=== PATIENT | female | born 1930 | race African-American/Black ===

== ENCOUNTER 2017-11-23 12:37 | Observation (INO) | payer MEDICARE, OTHER ==
[~2017-11-23] VITALS: Ht 162.6 cm; Wt 53.5 kg
[~2017-11-23 12:37] MED LIST: AMLO5TAB4 PO; ASPI-1159 PO; ATOR40TA70 PO; CLOP75TA33 PO; DEXT15DR5 EACHEYE; FOLBEE PLUS PO; MEMA1CAP PO; OFLO5DRO3 BOTHEYE; PRED5DRO7 EACHEYE
[2017-11-23 13:48] LABS: BASOPHILS % 0.5 % (0.0-2.0); HEMATOCRIT. 35.4 % (36.0-48.0); HEMOGLOBIN. 11.9 g/dL (12.0-16.0); LYMPHOCYTES % 21.7 % (20.0-50.0); MEAN CORPUSCULAR HEMOGLOBIN 30.6 pg (28.0-32.0); MEAN CORPUSCULAR VOLUME 90.8 fL (81.0-99.0); MEAN PLATELET VOLUME 8.1 fl (7.4-10.4); MONOCYTES % 10.3 % (2.0-8.0); NEUTROPHILS % 65.5 % (40.0-76.0); PLATELET 190 x1000/uL (130-400); RED CELL DISTRIBUTION WIDTH 14.5 % (11.6-14.6)
[2017-11-23 13:53] LABS: CHLORIDE 107 mEq/L (98-107)
[2017-11-23 13:56] LABS: INR 1.1; PARTIAL THROMBOPLASTIN TIME 26.3 sec (23.4-31.0)
[2017-11-23] MEDS ORDERED: SODIUM CHLORIDE 0.9% 1,000 ML IV ONE (15:14)
[2017-11-23 15:23] LABS: CLARITY URINE CLEAR (CLEAR); COLOR URINE YELLOW (YELLOW); KETONES URINE NEGATIVE (NEGATIVE); LEUKOCYTE ESTERASE URINE TRACE (NEGATIVE); NITRITE URINE NEGATIVE (NEGATIVE); OCCULT BLOOD URINE NEGATIVE (NEGATIVE); PROTEIN URINE NEGATIVE (NEGATIVE); SPECIFIC GRAVITY URINE 1.002 (1.005-1.030); UROBILINOGEN URINE 0.2 E.U./dL (0.2-1.0)
[2017-11-23] MEDS ORDERED: ACETAMINOPHEN 325MG TABLET PO PRN (19:00)
[2017-11-23] MEDS ORDERED: LORAZEPAM 0.5MG TABLET PO PRN (19:00)
[2017-11-23] MEDS ORDERED: ONDANSETRON HCL 4MG/2ML VIAL IV PRN (19:00)
[2017-11-23] MEDS ORDERED: CLONIDINE 0.1MG TABLET PO PRN (19:00)
[2017-11-23] MEDS ORDERED: IPRATROPIUM/ALBUTEROL 0.5-3(2.5)MG/3ML NEB INH PRN (19:00)
[2017-11-23 20:00] VITALS: BP 164/77
[2017-11-23] MEDS ORDERED: ATORVASTATIN CALCIUM 20MG TABLET PO SCH (21:00)
[2017-11-23 22:00] VITALS: BP 166/77
[2017-11-23] MEDS ORDERED: ENOXAPARIN 40MG/0.4ML SYR SUBCUT SCH (22:00)
[2017-11-23] MEDS: SODIUM CHL 0.45% + KCL 20MEQ/L 1,000 ML IV SCH (23:36)
[2017-11-23] MEDS: MEMANTINE HCL 10MG TABLET PO SCH (23:36)
[2017-11-24] VITALS (7 sets, daily range): BP systolic 68–169; BP diastolic 59–111
[2017-11-24 06:17] LABS: BASOPHILS % 0.9 % (0.0-2.0); EOSINOPHILS % 4.1 % (0.0-5.0); HEMATOCRIT. 34.8 % (36.0-48.0); HEMOGLOBIN. 11.7 g/dL (12.0-16.0); LYMPHOCYTES % 22.7 % (20.0-50.0); MEAN CORPUSCULAR HEMOGLOBIN 30.1 pg (28.0-32.0); MEAN CORPUSCULAR VOLUME 89.8 fL (81.0-99.0); MEAN PLATELET VOLUME 8.3 fl (7.4-10.4); MONOCYTES % 9.6 % (2.0-8.0); NEUTROPHILS % 62.7 % (40.0-76.0); PLATELET 174 x1000/uL (130-400); RED BLOOD CELL COUNT 3.88 mill/uL (4.2-5.4); RED CELL DISTRIBUTION WIDTH 14.2 % (11.6-14.6)
[2017-11-24 07:07] LABS: CHLORIDE 110 mEq/L (98-107)
[2017-11-24 07:21] LABS: LDL CHOLESTEROL 65 mg/dL (5-100)
[2017-11-24 07:23] LABS: HDL CHOLESTEROL 86 mg/dL (40-59)
[2017-11-24] MEDS ORDERED: ASPIRIN 325MG EC TABLET PO SCH (09:00)
[2017-11-24] MEDS ORDERED: DONEPEZIL HCL 10MG TABLET PO SCH (09:00)
[2017-11-24] MEDS ORDERED: AMLODIPINE 5MG TABLET PO SCH (09:00)
[2017-11-24] MEDS: SODIUM CHL 0.45% + KCL 20MEQ/L 1,000 ML IV SCH (09:06)
[2017-11-24] MEDS: MEMANTINE HCL 10MG TABLET PO SCH (09:06)
[2017-11-24 09:33] LABS: BG BASE EXCESS -0.9 mmol/L (-2.0-2.0); BG DEOXYHEMOGLOBIN 3.6 % (0.0-5.0); BG FRACTION INSPIRED OXYGEN 21; BG METHEMOGLOBIN 0.2 % (0.0-1.5); BG OXYGEN SATURATION 96.4 % (92.0-98.5); BG OXYHEMOGLOBIN 95.2 % (94.0-97.0); BG PCO2 35.9 mmHg (35.0-45.0); BG PH 7.425 (7.350-7.450); BG PO2 82.2 mmHg (75.0-100.0); BG SAMPLE SITE LEFT RADIAL; BG TOTAL HEMOGLOBIN 13.2 g/dL (12.0-18.0); BG VENT MODE ROOM AIR
== END 2017-11-24 18:25 | disposition home or self-care (01) ==
LOC: ER 12:37 → INTOOBSV 16:12 → 5WST 16:12 → ENRESERV 20:39 → 5WST 22:14
PROVIDERS: ADMIT Internal Medicine Geriatric Medicine; ATTEND Internal Medicine Geriatric Medicine
DX: G90.9 Disorder of the autonomic nervous system, unspecified (principal); E86.0 Dehydration; I11.9 Hypertensive heart disease without heart failure; I51.7 Cardiomegaly; K52.9 Noninfective gastroenteritis and colitis, unspecified; R41.82 Altered mental status, unspecified; R53.1 Weakness; E78.00 Pure hypercholesterolemia, unspecified; R42 Dizziness and giddiness; F03.90 Unspecified dementia, unspecified severity, without behavioral disturbance, psychotic disturbance, mood disturbance, and anxiety; Z86.73 Personal history of transient ischemic attack (TIA), and cerebral infarction without residual deficits
CPT/HCPCS: 36415; 36600; 70450; 71045; 80053; 80061; 81003; 82375; 82553; 82805; 82962; 84443; 84484; 85025; 85610; 85730; 87086; 93005; 93306; 93880; 93970; 96360; 96361; 96372; 99285; G0378; J1650; J3480; J7030

== ENCOUNTER 2018-06-03 10:26 | Inpatient (IN) | payer MEDICARE, OTHER ==
[~2018-06-03] VITALS: Ht 160 cm; Wt 61.2 kg
[2018-06-03] MEDS ORDERED: SODIUM CHLORIDE 0.9% 1,000 ML IV ONE (10:48)
[2018-06-03 11:33] LABS: CHLORIDE 105 mEq/L (98-107)
[2018-06-03 11:44] LABS: BASOPHILS % 0.9 % (0.0-2.0); EOSINOPHILS % 2.4 % (0.0-5.0); HEMATOCRIT. 38.7 % (36.0-48.0); HEMOGLOBIN. 12.9 g/dL (12.0-16.0); LYMPHOCYTES % 23.9 % (20.0-50.0); MEAN CORPUSCULAR HEMOGLOBIN 30.1 pg (28.0-32.0); MEAN CORPUSCULAR VOLUME 90.7 fL (81.0-99.0); MEAN PLATELET VOLUME 8.1 fl (7.4-10.4); MONOCYTES % 8.4 % (2.0-8.0); NEUTROPHILS % 64.4 % (40.0-76.0); PLATELET 214 x1000/uL (130-400); RED BLOOD CELL COUNT 4.27 mill/uL (4.2-5.4); RED CELL DISTRIBUTION WIDTH 14.6 % (11.6-14.6)
[2018-06-03 13:45] LABS: CLARITY URINE TURBID (CLEAR); COLOR URINE YELLOW (YELLOW); KETONES URINE NEGATIVE (NEGATIVE); LEUKOCYTE ESTERASE URINE 2+ (NEGATIVE); NITRITE URINE NEGATIVE (NEGATIVE); OCCULT BLOOD URINE TRACE (NEGATIVE); PROTEIN URINE NEGATIVE (NEGATIVE); SPECIFIC GRAVITY URINE 1.005 (1.005-1.030); UROBILINOGEN URINE 0.2 E.U./dL (0.2-1.0)
[2018-06-03 14:12] LABS: INR 1.1; PROTHROMBIN TIME 10.9 sec (9.1-11.1)
[2018-06-03] MEDS ORDERED: ACETAMINOPHEN 325MG TABLET PO PRN (14:30)
[2018-06-03] MEDS ORDERED: DOCUSATE SODIUM 100MG CAPSULE PO PRN (14:30)
[2018-06-03] MEDS ORDERED: DIPHENHYDRAMINE 50MG/ML VIAL IV PRN (14:30)
[2018-06-03] MEDS ORDERED: MAGNESIUM/ALUMINUM HYDROXIDE/SIMETHICONE 30ML UDC PO PRN (14:30)
[2018-06-03] MEDS ORDERED: LORAZEPAM 2MG/ML CPJ IV PRN (14:30)
[2018-06-03] MEDS ORDERED: CLONIDINE 0.1MG TABLET PO PRN (14:30)
[2018-06-03] MEDS ORDERED: GUAIFENESIN 200MG/10ML SUGAR FREE UDC PO PRN (14:30)
[2018-06-03] MEDS ORDERED: ONDANSETRON HCL 4MG/2ML INJ IV PRN (14:30)
[2018-06-03] MEDS ORDERED: CEFTRIAXONE 1 G PREMIX 50 ML IV NR (15:30)
[2018-06-03 16:42] VITALS: BP 145/76
[2018-06-03 16:49] LABS: HEPATITIS B SURFACE ANTIGEN NEGATIVE
[2018-06-03 17:00] VITALS: BP 145/76
[2018-06-03] MEDS ORDERED: ENOXAPARIN 30MG/0.3ML SYR SUBCUT SCH (17:00)
[2018-06-03] MEDS ORDERED: MEDICATION NOT ON FORMULARY EA (Dextran 70/Hypromellose (Artificial Tears Eye Drops) 1 D EACHEYE SCH (17:00)
[2018-06-03 17:19] LABS: HEPATITIS A AB IGM NEGATIVE (NEGATIVE)
[2018-06-03] MEDS: LEVOFLOXACIN 250MG TABLET PO SCH (17:57)
[2018-06-03] MEDS: PREDNISOLONE ACETATE 1% OPHTH DROPS 1ML EACHEYE SCH (17:57)
[2018-06-03] MEDS: POLYVINYL ALCOHOL OPHTH DROPS 15ML EACHEYE SCH ×2 (17:58→20:43)
[2018-06-03 20:00] VITALS: BP 137/66
[2018-06-03] MEDS ORDERED: ERGO2000 PO (20:04)
[2018-06-03] MEDS ORDERED: MEMA1CAP3 PO (20:04)
[2018-06-03] MEDS: ATORVASTATIN CALCIUM 40MG TABLET PO SCH (20:43)
[2018-06-04] VITALS (7 sets, daily range): BP systolic 116–155; BP diastolic 64–77
[2018-06-04 07:27] LABS: BASOPHILS % 0.6 % (0.0-2.0); HEMATOCRIT. 36.3 % (36.0-48.0); LYMPHOCYTES % 26.4 % (20.0-50.0); MEAN CORPUSCULAR HEMOGLOBIN 29.9 pg (28.0-32.0); MEAN CORPUSCULAR VOLUME 90.5 fL (81.0-99.0); MONOCYTES % 10.8 % (2.0-8.0); NEUTROPHILS % 60.2 % (40.0-76.0); PLATELET 195 x1000/uL (130-400); RED BLOOD CELL COUNT 4.01 mill/uL (4.2-5.4); RED CELL DISTRIBUTION WIDTH 14.4 % (11.6-14.6)
[2018-06-04] MEDS ORDERED: MEMANTINE HCL PO SCH (09:00)
[2018-06-04] MEDS ORDERED: MEDICATION NOT ON FORMULARY EA (Amlodipine Besylate (Norvasc) 5 MG) PO SCH (09:00)
[2018-06-04] MEDS ORDERED: MEDICATION NOT ON FORMULARY EA (Clopidogrel Bisulfate (Clopidogrel) 1 TAB) PO SCH (09:00)
[2018-06-04] MEDS: ASPIRIN 81MG TABLET PO SCH (10:50)
[2018-06-04] MEDS: CLOPIDOGREL 75MG TABLET PO SCH (10:50)
[2018-06-04] MEDS: AMLODIPINE 5MG TABLET PO SCH (10:56)
[2018-06-04] MEDS: LEVOFLOXACIN 250MG TABLET PO SCH (11:00)
[2018-06-04] MEDS: POLYVINYL ALCOHOL OPHTH DROPS 15ML EACHEYE SCH ×4 (11:19→21:18)
[2018-06-04] MEDS: PREDNISOLONE ACETATE 1% OPHTH DROPS 1ML EACHEYE SCH ×3 (11:19→17:00)
[2018-06-04] MEDS: SODIUM CHL 0.45% + KCL 20MEQ/L 1,000 ML IV SCH ×2 (11:20→21:18)
[2018-06-04] MEDS ORDERED: LEVOFLOXACIN 250MG PREMIX 50 ML IV SCH (16:00)
[2018-06-04] MEDS ORDERED: ENOXAPARIN 40MG/0.4ML SYR SUBCUT SCH (17:00)
[2018-06-04] MEDS: ATORVASTATIN CALCIUM 40MG TABLET PO SCH (21:18)
[2018-06-05] VITALS (7 sets, daily range): BP systolic 144–162; BP diastolic 69–90
[2018-06-05] MEDS: SODIUM CHL 0.45% + KCL 20MEQ/L 1,000 ML IV SCH (05:30)
[2018-06-05 07:35] LABS: BASOPHILS % 0.8 % (0.0-2.0); EOSINOPHILS % 2.3 % (0.0-5.0); HEMATOCRIT. 36.3 % (36.0-48.0); HEMOGLOBIN. 12.2 g/dL (12.0-16.0); LYMPHOCYTES % 23.8 % (20.0-50.0); MEAN CORPUSCULAR HEMOGLOBIN 30.2 pg (28.0-32.0); MEAN CORPUSCULAR VOLUME 90.1 fL (81.0-99.0); MEAN PLATELET VOLUME 7.9 fl (7.4-10.4); MONOCYTES % 10.6 % (2.0-8.0); NEUTROPHILS % 62.5 % (40.0-76.0); PLATELET 191 x1000/uL (130-400); RED BLOOD CELL COUNT 4.03 mill/uL (4.2-5.4); RED CELL DISTRIBUTION WIDTH 14.2 % (11.6-14.6)
[2018-06-05 08:18] LABS: VITAMIN B12 SERUM 1847 pg/mL (211-911)
[2018-06-05] MEDS: PREDNISOLONE ACETATE 1% OPHTH DROPS 1ML EACHEYE SCH (09:16)
[2018-06-05] MEDS: POLYVINYL ALCOHOL OPHTH DROPS 15ML EACHEYE SCH (09:17)
[2018-06-05] MEDS: AMLODIPINE 5MG TABLET PO SCH (09:19)
[2018-06-05] MEDS: CLOPIDOGREL 75MG TABLET PO SCH (09:19)
[2018-06-05] MEDS: ASPIRIN 81MG TABLET PO SCH (09:19)
== END 2018-06-05 11:21 | disposition home or self-care (01) | DRG 74 ==
LOC: ER 10:48 → 6WST 14:15 → EDBEDREQTM 14:18 → EDBEDREQ 14:18 → ENRESERV 15:29
PROVIDERS: ADMIT Internal Medicine Geriatric Medicine; ATTEND Internal Medicine Geriatric Medicine
DX: G90.8 Other disorders of autonomic nervous system (principal); E46 Unspecified protein-calorie malnutrition; G93.40 Encephalopathy, unspecified; I69.351 Hemiplegia and hemiparesis following cerebral infarction affecting right dominant side; N39.0 Urinary tract infection, site not specified; R73.9 Hyperglycemia, unspecified; R74.0 Nonspecific elevation of levels of transaminase and lactic acid dehydrogenase [LDH]; E78.00 Pure hypercholesterolemia, unspecified; E78.5 Hyperlipidemia, unspecified; I11.9 Hypertensive heart disease without heart failure; I27.20 Pulmonary hypertension, unspecified; K76.0 Fatty (change of) liver, not elsewhere classified; Z79.82 Long term (current) use of aspirin; Z68.23 Body mass index [BMI] 23.0-23.9, adult; Z79.899 Other long term (current) drug therapy
CPT/HCPCS: 36415; 70551; 71045; 76700; 80048; 80061; 80076; 82607; 83605; 83880; 84443; 84484; 86705; 86709; 86803; 87077; 87186; 87340; 93005; 93306; 93880; 93970; 96360; 96361; 97162; 99285; C1893; J1650; J3480; J7030

== ENCOUNTER 2019-04-27 10:52 | Emergency (ER) | payer MEDICARE, OTHER ==
[~2019-04-27] VITALS: Ht 157.5 cm; Wt 55.0 kg
[~2019-04-27 10:52] MED LIST changes: -ASPI-1159 PO; +ASPI-1393 PO; +ERGO2000 PO; +MEMA1CAP3 PO
[2019-04-27 12:01] LABS: BASOPHILS % 0.7 % (0.0-2.0); EOSINOPHILS % 1.9 % (0.0-5.0); HEMATOCRIT. 36.9 % (36.0-48.0); HEMOGLOBIN. 12.3 g/dL (12.0-16.0); LYMPHOCYTES % 16.1 % (20.0-50.0); MEAN CORPUSCULAR VOLUME 89.8 fL (81.0-99.0); MONOCYTES % 7.4 % (2.0-8.0); NEUTROPHILS % 73.9 % (40.0-76.0); PLATELET 191 x1000/uL (130-400); RED BLOOD CELL COUNT 4.11 mill/uL (4.2-5.4); RED CELL DISTRIBUTION WIDTH 14.6 % (11.6-14.6)
[2019-04-27 12:05] LABS: CHLORIDE 109 mEq/L (98-107)
[2019-04-27 13:54] VITALS: BP 152/74
== END 2019-04-27 14:17 | disposition home or self-care (01) ==
LOC: ER 10:52
DX: R53.1 Weakness (principal); R55 Syncope and collapse
CPT/HCPCS: 36415; 71045; 93005; 99284

== ENCOUNTER 2019-07-27 17:18 | Inpatient (IN) | payer MEDICARE ==
[~2019-07-27] VITALS: Ht 160 cm; Wt 54.4 kg
[~2019-07-27 17:18] MED LIST changes: +ASPI-1158 PO; -ASPI-1393 PO; +ASPI-1497 PO; +CLON0.1T14 PO; +DOCU250C14 PO; +LOV30 SUBCUT; -PRED5DRO7 EACHEYE; +TOPUD PO
[2019-07-27] MEDS ORDERED: SODIUM CHLORIDE 0.9% 1,000 ML IV ONE (19:06)
[2019-07-27 19:17] LABS: BASOPHILS % 0.8 % (0.0-2.0); EOSINOPHILS % 1.6 % (0.0-5.0); HEMOGLOBIN. 13.9 g/dL (12.0-16.0); LYMPHOCYTES % 17.2 % (20.0-50.0); MEAN CORPUSCULAR VOLUME 90.3 fL (81.0-99.0); MEAN PLATELET VOLUME 9.2 fl (7.4-10.4); MONOCYTES % 9.7 % (2.0-8.0); NEUTROPHILS % 70.7 % (40.0-76.0); PLATELET 173 x1000/uL (130-400); RED BLOOD CELL COUNT 4.64 mill/uL (4.2-5.4); RED CELL DISTRIBUTION WIDTH 15.5 % (11.6-14.6)
[2019-07-27 19:52] LABS: CHLORIDE 107 mEq/L (98-107)
[2019-07-28] MEDS ORDERED: ACETAMINOPHEN 325MG TABLET PO PRN (07:45)
[2019-07-28] MEDS ORDERED: ONDANSETRON HCL 4MG/2ML INJ IV PRN (07:45)
[2019-07-28 07:57] LABS: BASOPHILS % 0.7 % (0.0-2.0); EOSINOPHILS % 2.5 % (0.0-5.0); HEMATOCRIT. 35.7 % (36.0-48.0); HEMOGLOBIN. 12.1 g/dL (12.0-16.0); LYMPHOCYTES % 24.6 % (20.0-50.0); MEAN CORPUSCULAR HEMOGLOBIN 30.1 pg (28.0-32.0); MEAN CORPUSCULAR VOLUME 88.9 fL (81.0-99.0); MEAN PLATELET VOLUME 8.9 fl (7.4-10.4); MONOCYTES % 10.9 % (2.0-8.0); NEUTROPHILS % 61.3 % (40.0-76.0); PLATELET 166 x1000/uL (130-400); RED BLOOD CELL COUNT 4.02 mill/uL (4.2-5.4)
[2019-07-28] MEDS ORDERED: DEXT 5%/0.45% NACL KCL 20MEQ/L 1,000 ML IV ONE (08:00)
[2019-07-28 08:03] LABS: CHLORIDE 111 mEq/L (98-107)
[2019-07-28] MEDS ORDERED: POTASSIUM CHLORIDE 20MEQ TABLET SR PO ONE (08:15)
[2019-07-28] MEDS ORDERED: MAGNESIUM 2 G PREMIX 50 ML IV ONE (08:15)
[2019-07-28 16:26] VITALS: BP 124/64
[2019-07-28 16:42] VITALS: BP 128/64
[2019-07-28] MEDS: DEXT 5%/0.45% NACL KCL 20MEQ/L 1,000 ML IV SCH (18:22)
[2019-07-28 20:00] VITALS: BP 101/52
[2019-07-29] VITALS (8 sets, daily range): BP systolic 110–139; BP diastolic 51–75
[2019-07-29] MEDS: DEXT 5%/0.45% NACL KCL 20MEQ/L 1,000 ML IV SCH ×2 (05:11→16:03)
[2019-07-29 06:52] LABS: CLARITY URINE CLEAR (CLEAR); COLOR URINE DARK YELLOW (YELLOW); KETONES URINE TRACE (NEGATIVE); LEUKOCYTE ESTERASE URINE 1+ (NEGATIVE); NITRITE URINE NEGATIVE (NEGATIVE); OCCULT BLOOD URINE NEGATIVE (NEGATIVE); PROTEIN URINE TRACE (NEGATIVE); SPECIFIC GRAVITY URINE 1.019 (1.005-1.030)
[2019-07-29 07:31] LABS: *AMPHETAMINES SCREEN URINE NEGATIVE (NEGATIVE); *BARBITURATES SCREEN URINE NEGATIVE (NEGATIVE); *BENZODIAZEPINES SCREEN URINE NEGATIVE (NEGATIVE); *COCAINE SCREEN URINE NEGATIVE (NEGATIVE); CANNABINOID URINE SCREEN NEGATIVE (NEGATIVE)
[2019-07-29 07:32] LABS: METHADONE URINE SCREEN NEGATIVE (NEGATIVE); OPIATES URINE SCREEN NEGATIVE (NEGATIVE); PHENCYCLIDINE URINE SCREEN NEGATIVE (NEGATIVE)
[2019-07-29 07:58] LABS: CHLORIDE 112 mEq/L (98-107)
[2019-07-29 08:00] LABS: BASOPHILS % 0.6 % (0.0-2.0); EOSINOPHILS % 3.6 % (0.0-5.0); HEMATOCRIT. 37.3 % (36.0-48.0); HEMOGLOBIN. 12.8 g/dL (12.0-16.0); LYMPHOCYTES % 28.4 % (20.0-50.0); MEAN CORPUSCULAR HEMOGLOBIN 30.8 pg (28.0-32.0); MEAN CORPUSCULAR VOLUME 89.6 fL (81.0-99.0); MEAN PLATELET VOLUME 9.5 fl (7.4-10.4); MONOCYTES % 10.4 % (2.0-8.0); PLATELET 155 x1000/uL (130-400); RED BLOOD CELL COUNT 4.16 mill/uL (4.2-5.4); RED CELL DISTRIBUTION WIDTH 15.4 % (11.6-14.6)
[2019-07-30] VITALS: BP_SYST 113; BP_SYST 130; BP_DIAS 75; BP_DIAS 77
[2019-07-30 04:00] VITALS: BP 127/71
[2019-07-30] MEDS: DEXT 5%/0.45% NACL KCL 20MEQ/L 1,000 ML IV SCH (06:37)
[2019-07-30 07:57] VITALS: BP 130/71
[2019-07-30 08:00] VITALS: BP 130/71
[2019-07-30 09:31] VITALS: BP 130/71
== END 2019-07-30 12:22 | disposition home or self-care (01) | DRG 73 ==
LOC: ER 17:18 → 6WST 07-28 04:08 → ENRESERV 07-28 13:11
PROVIDERS: ADMIT Internal Medicine Geriatric Medicine; ATTEND Internal Medicine Geriatric Medicine
DX: G90.9 Disorder of the autonomic nervous system, unspecified (principal); G93.41 Metabolic encephalopathy; E46 Unspecified protein-calorie malnutrition; E87.6 Hypokalemia; E86.0 Dehydration; I11.9 Hypertensive heart disease without heart failure; E78.00 Pure hypercholesterolemia, unspecified; F03.90 Unspecified dementia, unspecified severity, without behavioral disturbance, psychotic disturbance, mood disturbance, and anxiety; Z79.899 Other long term (current) drug therapy; Z86.73 Personal history of transient ischemic attack (TIA), and cerebral infarction without residual deficits; Z79.02 Long term (current) use of antithrombotics/antiplatelets; Z68.21 Body mass index [BMI] 21.0-21.9, adult; Z79.82 Long term (current) use of aspirin
CPT/HCPCS: 36415; 70551; 71045; 80048; 80053; 80305; 81003; 83605; 83735; 84443; 84484; 85025; 93005; 97162; 99285; J7030